=== PATIENT | female | born 1985 | race Caucasian/White ===

== ENCOUNTER 2024-05-30 20:25 | Emergency (ER) | payer BC, OTHER | END 2024-05-30 22:45 | disposition home or self-care (01) | LOC: CSHERS 20:25 | DX: M79.661 Pain in right lower leg (principal) ==

== ENCOUNTER 2024-10-16 20:14 | Inpatient (IN) | payer BC, OTHER ==
[2024-10-16 21:22] LABS: #Basophils 0.08 10x3/uL (0.0-0.2); #Eosinophils 0.23 10x3/uL (0.0-0.5); #Monocytes 0.67 10x3/uL (0.0-1.1); #Neutrophils 9.73 10x3/uL (1.5-8.4); %Basophils 0.7 % (0.0-2.0); %Eosinophils 1.9 % (0.0-6.0); %Lymphocytes 10.9 % (18.0-47.0); %Monocytes 5.6 % (0.0-10.0); %Neutrophils 80.7 % (40.0-75.0); Bilirubin Neg (Negative); Blood, Urine 150 (Negative); Clarity Clear (Clear); Glucose, Urine (Dipstick) Normal (Negative); Hematocrit 41.9 % (34.9-44.5); Hemoglobin 13.7 g/dL (12.0-15.5); Ketone, Urine Negative (Negative); Leukocyte Negative (Negative); Mean Corpuscular HGB CONC 32.7 g/dL (32.0-36.0); Mean Corpuscular Hemoglobin 27.1 pg (27.0-33.0); Mean Platelet Volume 8.9 fL (7.4-10.4); Nitrite Negative (Negative); Platelet Count 277 10x3/uL (150-450); Protein, Urine (Dipstick) 15 mg/dl (Neg-Trace); RBC Distribution Width 16.3 % (11.5-14.5); Red Blood Cell (RBC) Count 5.05 10x6/uL (3.90-5.03); Specific Gravity, Urine 1.015 (1.005-1.030); Urobilinogen Normal mg/dL (Less than 2); White Blood Cell (WBC) Count 12.1 10x3/uL (3.5-10.5)
[2024-10-16 21:32] LABS: BHCG - Serum Negative (NEGATIVE); Pregs Control Background? CLEAR/WHITE (CLR/WHITE); Pregs Control Bar Appear? YES (CONTROL BAR)
[2024-10-16 21:37] LABS: ALT (SGPT) 49 U/L (8-55); AST (SGOT) 30 U/L (5-34); Albumin 4.4 g/dL (3.5-5.0); Alkaline Phosphatase 80 U/L (40-110); Anion Gap 13 mmol/L (10-20); BUN (Urea Nitrogen) 6 mg/dL (7.0-18.7); Bilirubin, Total 0.4 mg/dL (0.2-1.2); Calc. Creatinine Clearance 0 mL/min (70-130); Carbon Dioxide 26 mmol/L (22-29); Chloride 105 mmol/L (98-107); Estimated GFR 92; Globulin 3.2 g/dL (2.4-3.5); Glucose 99 mg/dL (70-105); Lipase 14 U/L (8-78); Protein, Total 7.6 g/dL (6.0-8.3); Sodium 140 mmol/L (136-145)
[2024-10-16 21:51] LABS: Bacteria/HPF None Seen HPF (None Seen); CAUTI Indications for Culture Pelvic or flank pain; RBC/HPF 0-3 HPF (0-3); Squamous Epithelial 0-3 HPF (0-3); Urine Culture Reflex No No; WBC/HPF 0-3 HPF (0-3)
[2024-10-16] MEDS ORDERED: Lidocaine Viscous Sol 2% 15 ml UD Cup ONE (22:00)
[2024-10-16] MEDS ORDERED: Ketorolac Tromethamine 30 MG (1 mL) VIAL ONE (22:00)
[2024-10-16] MEDS ORDERED: Milk Of Magnesia 30 ML UDCUP ONE (22:00)
[2024-10-16] MEDS ORDERED: Famotidine/PF 20 mg/2ml Vial ONE (22:01)
[2024-10-17] MEDS ORDERED: Piperacillin/Tazobactam 3.375 GM VIAL ONE (00:37)
[2024-10-17] MEDS ORDERED: Morphine 4 MG/ML VIAL SLOW IVP PRN (02:46)
[2024-10-17] MEDS ORDERED: Ondansetron PF 4 MG/2 ML Vial IVP PRN (02:47)
[2024-10-17] MEDS ORDERED: Ondansetron ODT 4 MG TAB PO PRN (02:48)
[2024-10-17 03:35] VITALS: BMI 28.1
[2024-10-17] MEDS: Piperacillin/Tazobactam 3.375 GM in Sodium Chloride 0.9% 100 ML IVPB SCH (05:10)
[2024-10-17 08:51] LABS: #Basophils 0.08 10x3/uL (0.0-0.2); #Eosinophils 0.14 10x3/uL (0.0-0.5); #Neutrophils 7.16 10x3/uL (1.5-8.4); %Basophils 0.9 % (0.0-2.0); %Eosinophils 1.6 % (0.0-6.0); %Lymphocytes 10.8 % (18.0-47.0); %Monocytes 6.7 % (0.0-10.0); %Neutrophils 79.7 % (40.0-75.0); Hematocrit 36.7 % (34.9-44.5); Hemoglobin 12.1 g/dL (12.0-15.5); Mean Corpuscular Hemoglobin 27.2 pg (27.0-33.0); Mean Corpuscular Volume 82.5 fL (81.6-98.3); Platelet Count 242 10x3/uL (150-450); RBC Distribution Width 16.5 % (11.5-14.5); Red Blood Cell (RBC) Count 4.45 10x6/uL (3.90-5.03)
[2024-10-17] MEDS: Levothyroxine Sodium 112 MCG TAB PO SCH (09:28)
[2024-10-17] MEDS: Acetaminophen 325 MG TAB PO PRN (09:28)
[2024-10-17] MEDS: Pantoprazole 40 MG VIAL IVP SCH (09:29)
[2024-10-17] MEDS: Lidocaine 10 ML, Aluminum & Magnesium Hydroxide 30 ML SSW SCH (09:31)
[2024-10-17 12:02] VITALS: TEMP 98.4
[2024-10-17] MEDS: Lidocaine 2% Viscous Solution 20 ML, Aluminum & Magnesium Hydroxide 30 ML, Donnatal Eli... SSW SCH (15:48)
[2024-10-17 16:44] VITALS: BP 119/62
== END 2024-10-17 18:10 | disposition home or self-care (01) | DRG 392 ==
LOC: CSHERS 20:14 → CSHTELE 10-17 01:05
PROVIDERS: ADMIT Surgery; ATTEND Surgery
DX: K29.70 Gastritis, unspecified, without bleeding (principal); Z88.1 Allergy status to other antibiotic agents; Z88.2 Allergy status to sulfonamides; E03.9 Hypothyroidism, unspecified; Z90.49 Acquired absence of other specified parts of digestive tract; Z79.890 Hormone replacement therapy; Z79.899 Other long term (current) drug therapy
CPT/HCPCS: 36415; 74177; 80053; 81001; 83690; 84703; 85025; 96361; 96365; 96375; J1885; J2470; J2543; J3490